=== PATIENT | female | born 1945 | race American Indian/Alaskan Native ===

== ENCOUNTER 2020-05-29 02:42 | Emergency (ER) | payer MEDICARE ==
--- NOTE | 2020-05-29 03:21 | EDM.PDOC ---
ED HPI GENERAL MEDICAL PROBLEM - General Chief Complaint: Abdominal Pain Stated Complaint: [facility] Time Seen by Provider: 05/29/20 03:18 Source of Information: Reports: Patient History Limitations: Reports: No Limitations - History of Present Illness INITIAL COMMENTS - FREE TEXT/NARRATIVE: gives long h/o constipation. present episode since yesterday. hadn't try anything. states at work she cannot freely go to bathroom so she holds it in till she can. Lower Abdomen Pain Score (Numeric/FACES): 6 - Related Data Allergies Allergy/AdvReac Type Severity Reaction Status Date / Time No Known Allergies Allergy Verified 05/29/20 02:49 Home Meds: Home Meds Acetaminophen [Tylenol] 625 mg PO Q4H PRN 05/29/20 [History] Losartan [Cozaar] 25 mg PO DAILY 05/29/20 [History] Omeprazole 20 mg PO DAILY 05/29/20 [History] ED ROS GENERAL - Review of Systems Review Of Systems: Comprehensive ROS is negative, except as noted in HPI. ED EXAM, GI/ABD - Physical Exam Exam: See Below Exam Limited By: No Limitations General Appearance: Alert, WD/WN, Mild Distress, Other (discomfort). No: Active Emesis Ears: Hearing Grossly Normal Throat/Mouth: Normal Voice, No Airway Compromise Head: Atraumatic Neck: Non-Tender, Full Range of Motion Respiratory/Chest: No Respiratory Distress Cardiovascular: Regular Rate, Rhythm GI/Abdominal Exam: Soft, Tender, Other (general). No: Distended, Guarding, Rigid, Rebound (Female) Exam: Deferred Rectal (Female) Exam: Deferred Neurological: Alert, Oriented, Normal Cognition, Normal Gait, No Motor/Sensory Deficits Psychiatric: Flat Affect, Tearful Skin Exam: Warm, Dry, Normal Color Lymphatic: No Adenopathy Course - Vital Signs Last Recorded V/S: Last Vital Signs Temp 36.7 C 05/29/20 02:51 Pulse 95 05/29/20 02:51 Resp 16 05/29/20 02:51 BP 160/75 H 05/29/20 02:51 Pulse Ox 99 05/29/20 02:51 Departure - Departure Time of Disposition: 04:50 Disposition: Home, Self-Care 01 Condition: Good Clinical Impression: Constipation by delayed colonic transit - Discharge Information Instructions: Constipation, Adult, [id number] Forms: ED Department Discharge Additional Instructions: 1) try MIRALAX or MAG CIT or COLACE or DULCOLAX 2) avoid solid foods next 48 hours have liquid doet 3) follow up at clinic Sepsis Event Note (ED) - Evaluation Sepsis Screening Result: No Definite Risk
--- NOTE | 2020-05-29 03:39 | CR ---
PROCEDURE INFORMATION: Exam: XR Abdomen, 1 View Exam date and time: 05/29/2020 3:03 AM Age: 74 years old Clinical indication: Other: Pain; Additional info: Constipation TECHNIQUE: Imaging protocol: XR of the abdomen. Views: Frontal supine view of the abdomen. 1 View. COMPARISON: No relevant prior studies available. FINDINGS: Gastrointestinal tract: Normal. No bowel dilation. Bones/joints: [id number] thoracolumbar curvature. No acute fractures. 6.8 cm density seen to the left of the lumbar spine at L2-L3. This is of uncertain significance. IMPRESSION: 6.8 cm density seen to the left of the lumbar spine at L2-L3. This is of uncertain significance. Recommend follow-up CT with contrast.
== END 2020-05-29 04:50 | disposition home or self-care (01) ==
LOC: DL.ED 02:42
DX: K59.01 Slow transit constipation (principal)
CPT/HCPCS: 74018; 99282; 99283